=== PATIENT | male | born 1980 | race Caucasian/White ===

== ENCOUNTER 2017-12-18 08:29 | Emergency (ER) | payer BC ==
--- NOTE | 2017-12-18 08:52 | EDM.PDOC ---
ED HPI GENERAL MEDICAL PROBLEM - General Chief Complaint: Lower Extremity Injury/Pain Stated Complaint: LT KNEE ISSUES Time Seen by Provider: 12/18/17 08:36 Source of Information: Reports: Patient History Limitations: Reports: No Limitations - History of Present Illness INITIAL COMMENTS - FREE TEXT/NARRATIVE: History of present illness: []She was buying softball last night and felt his knee pop with pain and swelling of the knee this morning. The pain is more pronounced on the lateral side of his knee. Patient is ambulatory. Review of systems: As per history of present illness and below otherwise all systems reviewed and negative. Past medical history: As per history of present illness and as reviewed below otherwise noncontributory. Surgical history: As per history of present illness and as reviewed below otherwise noncontributory. Social history: No reported history of drug or alcohol abuse. Family history: As per history of present illness and as reviewed below otherwise noncontributory. Physical exam: General: Well developed, well nourished in NAD HEENT: Atraumatic, normocephalic, pupils reactive, negative for conjunctival pallor or scleral icterus, mucous membranes moist, throat clear, neck supple, nontender, trachea midline. Lungs: Clear to auscultation, breath sounds equal bilaterally, chest nontender. Heart: S1S2, regular, negative for clicks, rubs, or JVD. Abdomen: Soft, nondistended, nontender. Negative for masses or hepatosplenomegaly. Negative for costovertebral tenderness. Pelvis: Stable nontender. Genitourinary: Deferred. Rectal: Deferred. Extremities: No obvious deformity of the left knee, there tenderness on palpation of the lateral joint line, mild palpable effusion, no laxity, negative for cords or calf pain. Neurovascular unremarkable. Neuro: Awake, alert, oriented. Cranial nerves II through XII unremarkable. Cerebellum unremarkable. Motor and sensory unremarkable throughout. Exam nonfocal. Diagnostics: []X-ray negative for fracture dislocation Therapeutics: []Declined pain meds Impression: []Knee sprain left Plan: []Ice, ibuprofen for pain follow-up with PMD as needed. Definitive disposition and diagnosis as appropriate pending reevaluation and review of above. left knee Pain Score (Numeric/FACES): 5 - Related Data Allergies Allergy/AdvReac Type Severity Reaction Status Date / Time No Known Allergies Allergy Verified 12/18/17 09:01 Home Meds: Home Meds . [No Known Home Meds] 12/18/17 [History] Review of Systems - Review of Systems Review Of Systems: See Below (See history of present illness) ED EXAM, GENERAL - Physical Exam Exam: See Below (See history of present illness) Course - Vital Signs Last Recorded V/S: Last Vital Signs Temp 97.3 F 12/18/17 08:41 Pulse 69 12/18/17 08:41 Resp 16 12/18/17 08:41 BP 128/77 12/18/17 08:41 Pulse Ox 95 12/18/17 08:41 Departure - Departure Time of Disposition: 10:15 Disposition: Home, Self-Care 01 Condition: Good Clinical Impression: Left knee sprain Qualifiers: Encounter type: initial encounter Involved ligament of knee: unspecified ligament Qualified Code(s): S83.92XA - Sprain of unspecified site of left knee, initial encounter - Discharge Information Referrals: PCP,None [Primary Care Provider] - Forms: ED Department Discharge Additional Instructions: The following information is given to patients seen in the emergency department who are being discharged to home. This information is to outline your options for follow-up care. We provide all patients seen in our emergency department with a follow-up referral. The need for follow-up, as well as the timing and circumstances, are variable depending upon the specifics of your emergency department visit. If you don't have a primary care physician on staff, we will provide you with a referral. We always advise you to contact your personal physician following an emergency department visit to inform them of the circumstance of the visit and for follow-up with them and/or the need for any referrals to a consulting specialist. The emergency department will also refer you to a specialist when appropriate. This referral assures that you have the opportunity for follow-up care with a specialist. All of these measure are taken in an effort to provide you with optimal care, which includes your follow-up. Under all circumstances we always encourage you to contact your private physician who remains a resource for coordinating your care. When calling for follow-up care, please make the office aware that this follow-up is from your recent emergency room visit. If for any reason you are refused follow-up, please contact the [facility] Emergency Department at and asked to speak to the emergency department charge nurse. Ice, support brace as needed Follow-up with orthopedics as needed. [facility] [address], [address] [place] [address]
--- NOTE | 2017-12-18 09:43 | CR ---
EXAMINATION: Left knee HISTORY: Pain COMPARISON: None TECHNIQUE: 3 views FINDINGS/IMPRESSION: There is no acute osseous abnormality, dislocation, or fracture. Bone mineraliza tion and joint spaces appear normal. Trace suprapatellar joint effusion.
== END 2017-12-18 10:22 | disposition home or self-care (01) ==
LOC: MW.ED 08:29
DX: S83.92XA Sprain of unspecified site of left knee, initial encounter (principal); X50.9XXA Other and unspecified overexertion or strenuous movements or postures, initial encounter; Y93.64 Activity, baseball
CPT/HCPCS: 73562-26-LT; 73562-LT; 99282; 99283

== ENCOUNTER 2018-03-16 07:34 | Day surgery (SDC) | payer BC ==
[~2018-03-16 07:34] MED LIST: Lactated Ringers 1,000 ML IV SCH
[2018-03-16] MEDS ORDERED: Bupivacaine 0.5% 10 ML SDV ONE (07:40)
[2018-03-16] MEDS ORDERED: Ketorolac 10 MG Tab PO PRN (08:00)
[2018-03-16] MEDS ORDERED: ceFAZolin 2 GM in Premix Bag 1 BAG IV SCH (08:00)
[2018-03-16] MEDS ORDERED: Acetaminophen/HYDROcodone 325-10 MG Tab PO PRN (08:00)
[2018-03-16] MEDS ORDERED: fentaNYL 250 MCG/5 ML SDV ONE (08:32)
[2018-03-16] MEDS ORDERED: Midazolam 1 MG/ML 2 ML SDV ONE (08:32)
[2018-03-16] MEDS ORDERED: Lidocaine 2% 5 ML SDV ONE (08:32)
[2018-03-16] MEDS ORDERED: Ondansetron 4 MG/2 ML SDV ONE (08:32)
[2018-03-16] MEDS ORDERED: Propofol 200 MG/20 ML SDV ONE (08:32)
[2018-03-16] MEDS ORDERED: ceFAZolin/Dextrose,Iso-Osmotic 2 GM/50 ML Duplex Bag IV ONE (08:43)
--- NOTE | 2018-03-16 10:01 | PCM.PREANE ---
Preanesthetic Assessment - Procedure Proposed Procedure: Left Knee ACL reconstruction - Anesthesia/Transfusion/Family Hx Anesthesia History: Prior Anesthesia Without Reaction Family History of Anesthesia Reaction: No Transfusion History: No Prior Transfusion(s) - Review of Systems General: No Symptoms Pulmonary: No Symptoms Cardiovascular: No Symptoms Gastrointestinal: No Symptoms Neurological: No Symptoms Other: Reports: None - Physical Assessment NPO Status Date: 03/15/18 NPO Status Time: 22:00 O2 Sat by Pulse Oximetry: 96 Respiratory Rate: 16 Vital Signs: Last Vital Signs Temp 97.2 F 03/16/18 08:29 Pulse 70 03/16/18 08:29 Resp 16 03/16/18 08:29 BP 134/82 03/16/18 08:29 Pulse Ox 96 03/16/18 08:29 Height: 6 ft 2 in Weight: 230 lb ASA Class: 1 Mental Status: Alert & Oriented x3 Airway Class: Mallampati = 1 Dentition: Reports: Normal Dentition Thyro-Mental Finger Breadths: 3 Mouth Opening Finger Breadths: 3 ROM/Head Extension: Full Lungs: Clear to Auscultation, Normal Respiratory Effort Cardiovascular: Regular Rate, Regular Rhythm, No Murmurs - Allergies Allergies/Adverse Reactions: Allergies Allergy/AdvReac Type Severity Reaction Status Date / Time latex Allergy Rash Verified 03/12/18 11:15 - Blood Blood Available: No Product(s) Available: None - Acknowledgements Anesthesia Type Planned: General Anesthesia (LMA) Pt an Appropriate Candidate for the Planned Anesthesia: Yes Alternatives and Risks of Anesthesia Discussed w Pt/Guardian: Yes Pt/Guardian Understands and Agrees with Anesthesia Plan: Yes PreAnesthesia Questionnaire HEENT History: Reports: None Cardiovascular History: Reports: Other (See Below) Other Cardiovascular History: hx of rheumatic fever Musculoskeletal History: Reports: Fracture Other Musculoskeletal History: left wrist - Infectious Disease History Infectious Disease History: Reports: Rheumatic Fever - Past Surgical History Head Surgeries/Procedures: Reports: None HEENT Surgical History: Reports: Tonsillectomy Musculoskeletal Surgical History: Reports: ORIF Other Musculoskeletal Surgeries/Procedures:: ORIF left wrist- has hardware - SUBSTANCE USE Smoking Status *Q: Never Smoker Recreational Drug Use History: No - HOME MEDS Home Medications: Home Meds . [No Known Home Meds] 12/18/17 [History] - CURRENT (IN HOUSE) MEDS Current Meds: Current Medications Hydrocodone Bitart/Acetaminophen (Berkley 325-10 Mg) 1 - 2 tab PO Q4H PRN PRN Reason: Pain Cefazolin Sodium/Dextrose 2 gm (/ Premix) 50 mls @ 100 mls/hr IV ONCALL FOR[facility] Lactated Ringer's (Ringers, Lactated) 1,000 mls @ 100 mls/hr IV ASDIRECTED FOR[facility]LY [facility] Last Admin: 03/16/18 08:05 Dose: 100 mls/hr Ketorolac Tromethamine (Toradol) 10 mg PO Q6H PRN PRN Reason: Pain Stop: 03/21/18 08:01 Discontinued Medications Bupivacaine HCl (Sensorcaine-Mpf 0.5%) Confirm Administered Dose 10 ml .ROUTE .STK-MED ONE Stop: 03/16/18 07:41 Cefazolin Sodium/Dextrose (Ancef) Confirm Administered Dose 2 gm IV .STK-MED ONE Stop: 03/16/18 08:44 Fentanyl (Sublimaze) Confirm Administered Dose 250 mcg .ROUTE .STK-MED ONE Stop: 03/16/18 08:33 Lidocaine (Xylocaine-Mpf 2%) Confirm Administered Dose 5 ml .ROUTE .STK-MED ONE Stop: 03/16/18 08:33 Midazolam HCl (Versed 1 Mg/Ml) Confirm Administered Dose 2 mg .ROUTE .STK-MED ONE Stop: 03/16/18 08:33 Ondansetron HCl (Zofran) Confirm Administered Dose 4 mg .ROUTE .STK-MED ONE Stop: 03/16/18 08:33 Propofol (Diprivan 20 Ml) Confirm Administered Dose 200 mg .ROUTE .STK-MED ONE Stop: 03/16/18 08:33
[2018-03-16] MEDS ORDERED: HYDROmorphone 2 MG/ML SDV ONE (11:22)
[2018-03-16] MEDS: fentaNYL 100 MCG/2 ML SDV IVPUSH PRN ×3 (12:41→13:18)
--- NOTE | 2018-03-16 12:52 | PCM.OPNOTE ---
- General Post-Op/Procedure Note Date of Surgery/Procedure: 03/16/18 Operative Procedure(s): L knee scope, diagnostic with arthroscopically aided ACL reconstruction using allograft Post-Op Diagnosis: L knee acl tear Anesthesia Technique: General ET Tube Primary Surgeon: Gisele Camarillo Motor Vehicle Emissions Inspector: Katrina Burrell in mLs: 15 Condition: Good Free Text/Narrative:: tt=78 min #[id number]
--- NOTE | 2018-03-16 13:00 | PCM.POSTAN ---
POST ANESTHESIA ASSESSMENT - MENTAL STATUS Mental Status: Alert, Oriented - RESPIRATORY Respiratory Status: Respiratory Rate WNL, Airway Patent, O2 Saturation Stable - CARDIOVASCULAR CV Status: Pulse Rate WNL, Blood Pressure Stable - GASTROINTESTINAL GI Status: No Symptoms - PAIN Pain Score: 2 - POST OP HYDRATION Hydration Status: Adequate & Stable
--- NOTE | 2018-03-16 15:13 | PCM48HPAN ---
Post Anesthesia Note - EVALUATION WITHIN 48HRS OF ANESTHETIC Vital Signs in Normal Range: Yes Patient Participated in Evaluation: Yes Respiratory Function Stable: Yes Airway Patent: Yes Cardiovascular Function Stable: Yes Hydration Status Stable: Yes Pain Control Satisfactory: Yes Nausea and Vomiting Control Satisfactory: Yes Mental Status Recovered: Yes Resp Rate: 14 - COMMENTS/OBSERVATIONS Free Text/Narrative:: DC to home
--- NOTE | 2018-03-16 15:58 | OR ---
SURGEON: Gisele Camarillo MD DATE OF PROCEDURE: 03/16/2018 PREOPERATIVE DIAGNOSIS: Left knee anterior cruciate ligament tear. POSTOPERATIVE DIAGNOSIS: Left knee anterior cruciate ligament tear. PROCEDURES: 1. Left knee arthroscopy, diagnostic. 2. Arthroscopically aided left knee anterior cruciate ligament reconstruction using allograft. GRAPHIC ART DESIGNER: Katrina Burrell PA-C ANESTHESIA: General. ESTIMATED BLOOD LOSS: 15 mL. TOURNIQUET TIME: 78 minutes. COMPLICATIONS: None. DVT PROPHYLAXIS: PAS boot to the nonoperative leg. IMPLANTS USED: Biomet 13-mm toggle lock button with a zip loop in line and a Biomet tunnel lock with disposable tensioner. BRIEF HISTORY: Devonte is a 37-year-old male who injured his left knee. An MRI did show a tear of the ACL. We did attempt conservative treatment including physical therapy, however, he continued to have recurrent instability. Due to his lack of response to conservative treatment, I did recommend surgical intervention. The risks and goals of procedure were discussed with the patient and were documented preoperatively. He agreed to proceed. DESCRIPTION OF PROCEDURE: The patient was properly identified and brought to the operating room. He was transferred from the OR cart and placed on the operating table in the supine position. General anesthesia was administered. After adequate anesthesia was obtained, a well-padded tourniquet was applied to the left lower extremity. He did have a positive Amado's and pivot shift sign. The left lower extremity was then prepped in standard fashion using ChloraPrep solution. It was then sterilely draped. A time-out was performed to ensure correct site and procedure. Preoperative antibiotics were given. The surgical site had been marked preoperatively. An Esmarch was used to exsanguinate the left lower extremity. The tourniquet was inflated to 250 mmHg. A lateral portal arthrotomy was established. Blunt trocar and cannula were introduced into the suprapatellar space. Camera, inflow, and outflow were assembled. He did have some difficulty with the outflow and the tubing was replaced. I elected not to deflate the tourniquet during this time. Once we had new inflow and outflow, the system appeared to be working better. The suprapatellar pouch showed no significant synovitis. The patellofemoral joint was visualized and no degenerative changes were noted. The patella appeared to track centrally. I extended down the lateral and medial gutter. No loose bodies were identified. I then entered the medial compartment. A medial portal arthrotomy was established. A blunt probe was inserted. The meniscus was extensively probed and no degenerative findings were noted. I then entered the notch. Both the ACL and PCL were visualized. There was no attachment of the ACL to the lateral femoral condyle. The ACL appeared to be scarred to the PCL. The PCL appeared intact. I then entered the lateral compartment. There showed no degenerative findings other than mild grade 1 chondromalacia along the lateral tibial plateau. The lateral meniscus was also probed and found to be intact. I then re-entered the notch. The ACL was removed with a combination of litzy and electrocautery. The attachment site to the tibia was cleared of soft tissue, keeping a small portion of the ACL remnant intact for proprioception purposes. A 5.0 mm ishan was used to perform a small notchplasty. This then allowed us to visualize the lateral wall better. The soft tissue was removed from the lateral wall. I did use a large curette to remove the soft tissue from the posterior aspect of the femur to allow us to visualize the posterior aspect of the femur. Once we were able to visualize this, the point for the femoral tunnel was identified with electrocautery. We then turned our attention back to the tibia. The tibial guide was placed. An incision was made along the proximal medial aspect of the tibia. The subcutaneous tissues were dissected down to the periosteum. The periosteum was elevated. The tibial guide was then placed back into the knee. The guide pin point was placed just anterior to the PCL in line with the anterior horn of the lateral meniscus. A guide pin was then placed. It was felt that the positioning of the guide pin was acceptable. The ACL allograft had been prepared in standard fashion on the back table prior to this point. It was properly measured and attached to the tunnel lock device. It was sized to be an 8.5. I elected to proceed with an 8.5 mm femoral tunnel and a 9 mm tibial tunnel. The 9 mm reamer was then placed over the guide pin and the tibial tunnel was reamed. A shaver was then introduced to remove any soft tissue. The posterior aspect of the tibial tunnel was smoothed using a rasp. A cannula was then placed into the tibial tunnel to assist with water management. The camera was then moved to the medial portal. The femoral guide was then placed into a posterior and inferior position onto the femoral condyle. A small incision was made over the lateral aspect of the distal femur, dissecting through the iliotibial band. The 8.5 mm switch cut drill bit was then passed into the joint. The position of the switch cutter appeared to be in appropriate position and the femoral guide was removed. A 30-mm tunnel was then retro drilled. The position of the femoral tunnel appeared nearly anatomic. A passing wire suture was then passed in through the cannula and out through the tibial tunnel to assist with graft passage. The instruments and cannula for the femoral drill were removed. The graft was then passed through the tibial tunnel into the femoral tunnel. The toggle lock button was palpated along the distal femur and was flipped. The counter pressure on the tibia confirmed that the toggle lock was sitting flush over the lateral cortex of the femur. C-arm imaging confirmed this. The graft was then shuttled into the femur to a depth of approximately 25 mm. This had been marked on the graft preoperatively. I then held tension on the graft as the knee was taken through a range of motion. There appeared to be no pistoning of the graft. There did not appear to be any impingement of the graft on the PCL or the lateral femoral condyle. The camera was then removed from the knee. The knee was held in a slightly hyperextended position. The 2 limbs of the graft were placed onto the tensioning device and the graft was tensioned. The tunnel lock was then deployed over a guide pin, which had been placed into the tibial tunnel. Once this was adequately seated, I did remove the tensioner device and the knee was taken through a range of motion. No pistoning of the graft was again noted. I did replace the arthroscopic camera and was able to visualize the graft. This was extensively probed and found to be stable. The ends of the graft were then removed from the tibia site. The tourniquet was then deflated. No significant bleeding was noted. The deep tissues were closed on the tibia with 2-0 Vicryl. The subcutaneous tissues were also closed with 2-0 Vicryl. The skin was closed with a running 4-0 Monocryl suture. The portal sites were closed with 3-0 nylon. 0.5% Marcaine was injected along the incision sites. Steri-Strips and Benzoin were placed over the proximal tibial wound. Xeroform gauze was placed over all incisions and a bulky dressing was applied. He was placed in a hinged knee brace, locked in full extension. He was awakened from his anesthetic and transferred back to the operating room cart. He was brought to recovery room in stable condition. All needle and sponge counts were correct. RITU / CHARLENE /[id number]
--- NOTE | 2018-03-17 13:55 | CR ---
EXAMINATION: Left knee HISTORY: ACL reconstruction COMPARISON: MRI 01/09/2018 TECHNIQUE: Single view FINDINGS/IMPRESSION: Single operative control film demonstrates postsurgical changes secondary to ACL repair.
== END 2018-03-16 15:11 | disposition home or self-care (01) ==
LOC: MW.SDS 07:34
PROVIDERS: ATTEND Orthopaedic Surgery
DX: S83.512A Sprain of anterior cruciate ligament of left knee, initial encounter (principal); M25.462 Effusion, left knee; Y93.61 Activity, american tackle football; Z91.040 Latex allergy status
CPT/HCPCS: 29888; C1762; C1776; J0690; J1170; J2250; J2405; J2704; J3010; J3490; J7120; 76000; 76000-26